=== PATIENT | female | born 1950 | race Caucasian/White ===

== ENCOUNTER 2017-09-10 18:52 | Inpatient (IN) | payer OTHER, MEDICARE ==
[~2017-09-10] VITALS: Ht 157.5 cm; Wt 85.1 kg
[2017-09-10] MEDS: CIPROFLOXACIN OPHTH SOLN 0.3%, 5ML EACHEYE SCH (02:30)
[2017-09-10] MEDS ORDERED: ALBUTEROL/IPRATROPIUM 2.5MG/0.5MG, 3 ML NPPB ONE (20:00)
[2017-09-10] MEDS ORDERED: ALBUTEROL/IPRATROPIUM 2.5MG/0.5MG, 3 ML ONE ×2 (20:03→20:39)
[2017-09-10 20:11] LABS: BASOPHILS # (AUTO) 0.02 x10^3/uL (0-0.1); BASOPHILS % (AUTO) 0 % (0-1); EOSINOPHILS # (AUTO) 0.16 x10^3/uL (0-0.4); EOSINOPHILS % (AUTO) 1 % (1-7); LYMPHOCYTES # (AUTO) 2.37 x10^3/uL (1-3.4); LYMPHOCYTES % (AUTO) 21 % (22-44); MD NO; MEAN CORPUSCULAR HGB CONC 34.3 g/dL (32.4-35.8); MEAN CORPUSCULAR VOLUME 90.2 fL (80-100); MEAN PLATELET VOLUME 8.7 fL (7.4-10.4); MONOCYTES # (AUTO) 0.93 x10^3/uL (0.2-0.8); MONOCYTES % (AUTO) 8 % (2-9); NEUTROPHILS # (AUTO) 7.96 x10^3/uL (1.8-6.8); NEUTROPHILS % (AUTO) 70 % (42-75); PLATELET COUNT 290 x10^3/uL (130-400); RED BLOOD COUNT 4.67 x10^6/uL (3.82-5.3); RED CELL DISTRIBUTION WIDTH 12.4 % (9.6-15.2)
[2017-09-10 20:19] LABS: RAPID INFLUENZA A Negative (Negative); RAPID INFLUENZA B Negative (Negative)
[2017-09-10 20:24] LABS: ALANINE AMINOTRANSFERASE 100 U/L (12-78); ALBUMIN 3.3 g/dL (3.4-5.0); ANION GAP 5 mmol/L (5-15); CALCIUM 8.6 mg/dL (8.5-10.1); CHLORIDE 103 mmol/L (98-107)
[2017-09-10 20:28] LABS: ALKALINE PHOSPHATASE 331 U/L (45-117); BILIRUBIN,TOTAL 0.3 mg/dL (0.2-1.0); TOTAL PROTEIN 7.4 g/dL (6.4-8.2); TROPONIN I < 0.015 ng/mL (0.000-0.045)
[2017-09-10] MEDS ORDERED: SODIUM CHLORIDE FLUSH 10ML SYR IVF ONE (21:00)
[2017-09-10] MEDS ORDERED: IBUPROFEN 200 MG TABLET PO ONE (21:00)
[2017-09-10] MEDS ORDERED: SODIUM CHLORIDE 0.9% 1,000ML IVBOLUS ONE (21:00)
[2017-09-10] MEDS ORDERED: IBUPROFEN 200 MG TABLET ONE (21:18)
[2017-09-10] MEDS ORDERED: KETOROLAC 30 MG/1 ML IVPush SCH (22:30)
[2017-09-10] MEDS ORDERED: BISACODYL 10 MG SUPP PR PRN (22:30)
[2017-09-10] MEDS ORDERED: ACETAMINOPHEN 325 MG TABLET PO PRN (22:30)
[2017-09-10] MEDS ORDERED: POLYETHYLENE GLYCOL 17 GM PACKET PO PRN (22:30)
[2017-09-10] MEDS ORDERED: ONDANSETRON 2MG/ML, 2ML IVPush PRN (22:30)
[2017-09-10] MEDS ORDERED: GUAIFENESIN/DM 200-20MG, 10ML UDC PO PRN (22:30)
[2017-09-10] MEDS ORDERED: HEPARIN 5,000 UNITS/ML, 1ML ONE (22:40)
[2017-09-10] MEDS ORDERED: KETOROLAC 30 MG/1 ML ONE (22:40)
[2017-09-10] MEDS: SODIUM CHLORIDE 0.9% 1,000 ML IV SCH (22:50)
[2017-09-10] MEDS: HEPARIN 5,000 UNITS/ML, 1ML SQ SCH (22:51)
[2017-09-10 23:00] LABS: HEMOGLOBIN A1C 10.5 % (4.2-6.3)
[2017-09-10 23:39] VITALS: BP 126/56
[2017-09-11] MEDS: KETOROLAC 30 MG/1 ML IVPush SCH ×2 (01:12→08:01)
[2017-09-11] MEDS: SODIUM CHLORIDE 0.9% 1,000 ML IV SCH (01:15)
[2017-09-11 01:41] VITALS: BP 129/74
[2017-09-11] MEDS: CIPROFLOXACIN OPHTH SOLN 0.3%, 5ML EACHEYE SCH ×2 (04:21→08:01)
[2017-09-11 05:26] LABS: BASOPHILS # (AUTO) 0.05 x10^3/uL (0-0.1); BASOPHILS % (AUTO) 0 % (0-1); EOSINOPHILS # (AUTO) 0.07 x10^3/uL (0-0.4); EOSINOPHILS % (AUTO) 1 % (1-7); LYMPHOCYTES % (AUTO) 26 % (22-44); MD NO; MEAN CORPUSCULAR HEMOGLOBIN 31.2 pg (27.0-34.8); MEAN CORPUSCULAR HGB CONC 34.7 g/dL (32.4-35.8); MEAN CORPUSCULAR VOLUME 89.9 fL (80-100); MEAN PLATELET VOLUME 8.9 fL (7.4-10.4); MONOCYTES # (AUTO) 0.91 x10^3/uL (0.2-0.8); MONOCYTES % (AUTO) 9 % (2-9); NEUTROPHILS # (AUTO) 6.58 x10^3/uL (1.8-6.8); NEUTROPHILS % (AUTO) 65 % (42-75); PLATELET COUNT 248 x10^3/uL (130-400); RED BLOOD COUNT 4.01 x10^6/uL (3.82-5.3); RED CELL DISTRIBUTION WIDTH 12.4 % (9.6-15.2)
[2017-09-11 05:29] LABS: CHLORIDE 109 mmol/L (98-107)
[2017-09-11 05:34] LABS: ALANINE AMINOTRANSFERASE 79 U/L (12-78); ALBUMIN 2.8 g/dL (3.4-5.0); ALKALINE PHOSPHATASE 277 U/L (45-117); ANION GAP 3 mmol/L (5-15); BILIRUBIN,TOTAL 0.5 mg/dL (0.2-1.0); CALCIUM 8.1 mg/dL (8.5-10.1); CREATININE 0.71 mg/dL (0.55-1.02); TOTAL PROTEIN 6.5 g/dL (6.4-8.2)
[2017-09-11 07:10] VITALS: BP 138/80
[2017-09-11] MEDS: HEPARIN 5,000 UNITS/ML, 1ML SQ SCH (07:59)
[2017-09-11] MEDS ORDERED: INSULIN ASPART 100 UNITS/ML, PEN SQ-INSULIN SCH (08:30)
[2017-09-11] MEDS ORDERED: SENNA/DOCUSATE TABLET PO SCH (09:00)
[2017-09-11] MEDS ORDERED: AMOXICILLIN/CLAV 875-125MG TABLET PO SCH (09:00)
== END 2017-09-11 10:17 | disposition home or self-care (01) | DRG 872 ==
LOC: ED 22:09 → EDIP 22:15 → SUATTDRO 23:02 → 4WST 23:36 → DCLOUNGE 09-11 10:10
PROVIDERS: ADMIT Internal Medicine; ATTEND Internal Medicine
DX: A41.9 Sepsis, unspecified organism (principal); E11.65 Type 2 diabetes mellitus with hyperglycemia; E44.1 Mild protein-calorie malnutrition; B34.9 Viral infection, unspecified; E03.9 Hypothyroidism, unspecified; E78.5 Hyperlipidemia, unspecified; E86.0 Dehydration; H10.9 Unspecified conjunctivitis; H66.93 Otitis media, unspecified, bilateral; I10 Essential (primary) hypertension; J00 Acute nasopharyngitis [common cold]; J20.9 Acute bronchitis, unspecified; K21.9 Gastro-esophageal reflux disease without esophagitis; Z79.4 Long term (current) use of insulin; Z82.49 Family history of ischemic heart disease and other diseases of the circulatory system; Z83.3 Family history of diabetes mellitus; Z87.891 Personal history of nicotine dependence; Z87.81 Personal history of (healed) traumatic fracture; Z98.51 Tubal ligation status; Z68.34 Body mass index [BMI] 34.0-34.9, adult
CPT/HCPCS: 36415; 71046; 80053; 82962; 83036; 83880; 84484; 85025; 87081; 87400; 87880; 93005; 94640; 96361; 96374; J1644; J1815; J1885; J7620; J7030

== ENCOUNTER 2018-01-23 00:49 | Emergency (ER) | payer OTHER, MEDICARE ==
[~2018-01-23] VITALS: Ht 160 cm; Wt 78.0 kg
[2018-01-23 01:04] VITALS: BP 142/76
== END 2018-01-23 01:44 | disposition home or self-care (01) ==
LOC: ED 01:40
DX: I10 Essential (primary) hypertension (principal); K21.9 Gastro-esophageal reflux disease without esophagitis; E11.9 Type 2 diabetes mellitus without complications
CPT/HCPCS: 93005; 99283